=== PATIENT | female | born 1970 | race Caucasian/White ===

== ENCOUNTER 2017-07-29 22:48 | Emergency (ER) | payer SELFPAY ==
[~2017-07-29] VITALS: Ht 157.5 cm; Wt 90.7 kg
[~2017-07-29 22:48] MED LIST: HYDROCHLOROTHIA25 MG GT; HYDROCODON-ACE1 EAC6 PO; LISINOPRIL10 MG GT
[2017-07-29 23:12] VITALS: Ht 157.5 cm; Wt 90.7 kg
[2017-07-29] MEDS ORDERED: HORMONE REPLACEMENT (23:14)
[2017-07-29 23:50] LABS: ALBUMIN 3.8 g/dL (3.4-5.0); ALKALINE PHOSPHATASE 90 U/L (46-116); ALT (SGPT) 22 U/L (10-68); CALC OSMOLALITY 287 mosm/kg (275-300); CALCIUM 8.9 mg/dL (8.5-10.1); CHLORIDE - SERUM 108 mmol/L (98-107); CREATININE - SERUM 0.8 mg/dL (0.6-1.3); GLUCOSE 90 mg/dL (74-106); POTASSIUM - SERUM 3.4 mmol/L (3.5-5.1); PROTEIN - SERUM 7.1 g/dL (6.4-8.2); SODIUM 144 mmol/L (136-145); UREA NITROGEN 16 mg/dL (7-18); eGFR NON AFRICAN AMERICAN 81 mL/min (90-120)
[2017-07-30 00:15] LABS: BASOPHILS 0.2 % (0-2); EOSINOPHILS 2.1 % (0-7); HEMATOCRIT 38.1 % (36.0-48.0); HEMOGLOBIN 12.7 g/dL (12-16); IMMATURE GRANULOCYTES 0.2 % (0-5); LYMPHOCYTES 27.1 % (15-50); MCH 28.4 pg (26.0-34.0); MCHC 33.3 g/dL (31.0-37.0); MCV 85.2 fL (80.0-100.0); MEAN PLATELET VOLUME 10.8 fL (7.4-10.4); MONOCYTES 7.5 % (2-11); NEUTROPHILS 62.9 % (40-80); PLATELET COUNT 297 10x3/uL (130-400); RBC 4.47 10x6/uL (4.00-5.40); RDW 13.1 % (11.5-14.5); WBC 8.4 10x3/uL (4.8-10.8)
[2017-07-30 02:19] VITALS: BP 123/74
== END 2017-07-30 02:20 | disposition home or self-care (01) ==
LOC: D.ER 22:48
PROVIDERS: Emergency Medicine
DX: M71.21 Synovial cyst of popliteal space [Baker], right knee (principal); M79.604 Pain in right leg; I10 Essential (primary) hypertension

== ENCOUNTER 2018-05-19 09:36 | Emergency (ER) | payer SELFPAY ==
[~2018-05-19] VITALS: Ht 157.5 cm; Wt 90.9 kg
[~2018-05-19 09:36] MED LIST changes: +HORMONE REPLACEMENT
[2018-05-19 09:38] VITALS: Ht 157.5 cm; Wt 90.9 kg
[2018-05-19] MEDS ORDERED: LISINOPRIL-HCT1 EAC8 PO (10:44)
[2018-05-19 11:21] VITALS: BP 184/77
== END 2018-05-19 11:20 | disposition home or self-care (01) ==
LOC: D.ER 09:36
DX: S93.601A Unspecified sprain of right foot, initial encounter (principal); X50.1XXA Overexertion from prolonged static or awkward postures, initial encounter; Y93.89 Activity, other specified; Y92.019 Unspecified place in single-family (private) house as the place of occurrence of the external cause; I10 Essential (primary) hypertension

== ENCOUNTER 2019-10-29 10:07 | Emergency (ER) | payer SELFPAY ==
[~2019-10-29] VITALS: Ht 157.5 cm; Wt 90.9 kg
[~2019-10-29 10:07] MED LIST changes: +LISINOPRIL-HCT1 EAC8 PO
[2019-10-29 10:24] VITALS: Ht 157.5 cm; Wt 90.9 kg
[2019-10-29 11:36] LABS: BASOPHILS 0.3 % (0-2); HEMATOCRIT 39.1 % (36.0-48.0); IMMATURE GRANULOCYTES 0.2 % (0-5); LYMPHOCYTES 41.9 % (15-50); MCH 29.5 pg (26.0-34.0); MCHC 33.2 g/dL (31.0-37.0); MCV 88.7 fL (80.0-100.0); MEAN PLATELET VOLUME 10.4 fL (7.4-10.4); MONOCYTES 6.8 % (2-11); NEUTROPHILS 48.8 % (40-80); PLATELET COUNT 274 10x3/uL (130-400); RBC 4.41 10x6/uL (4.00-5.40); RDW 12.7 % (11.5-14.5); WBC 6.4 10x3/uL (4.8-10.8)
[2019-10-29 11:41] LABS: ANION GAP 9.2 mmol/L (8-16); CALCIUM 8.9 mg/dL (8.5-10.1); CARBON DIOXIDE 30.6 mmol/L (21.0-32.0); CREATININE - SERUM 0.9 mg/dL (0.6-1.3); POTASSIUM - SERUM 3.8 mmol/L (3.5-5.1)
[2019-10-29 11:48] LABS: ALBUMIN 3.6 g/dL (3.4-5.0); BILIRUBIN - TOTAL 0.69 mg/dL (0.2-1.3); PROTEIN - SERUM 7.1 g/dL (6.4-8.2)
[2019-10-29] MEDS ORDERED: VOLTAREN75 MG PO (11:57)
[2019-10-29 12:59] VITALS: BP 130/65
== END 2019-10-29 13:01 | disposition home or self-care (01) ==
LOC: D.ER 10:07
PROVIDERS: Family Medicine
DX: M25.561 Pain in right knee (principal); M17.11 Unilateral primary osteoarthritis, right knee; I10 Essential (primary) hypertension

== ENCOUNTER 2020-08-12 19:52 | Emergency (ER) | payer SELFPAY ==
[~2020-08-12] VITALS: Ht 157.5 cm; Wt 90.9 kg
[~2020-08-12 19:52] MED LIST changes: +VOLTAREN75 MG PO
[2020-08-12 19:56] VITALS: Ht 157.5 cm; Wt 90.9 kg
[2020-08-12 22:05] LABS: CARBON DIOXIDE 31.4 mmol/L (21.0-32.0); CREATININE - SERUM 0.9 mg/dL (0.6-1.3); POTASSIUM - SERUM 3.4 mmol/L (3.5-5.1)
[2020-08-12 22:16] LABS: BASOPHILS 0.2 % (0-2); EOSINOPHILS 1.7 % (0-7); HEMATOCRIT 39.7 % (36.0-48.0); HEMOGLOBIN 13.4 g/dL (12-16); LYMPHOCYTES 28.8 % (15-50); MCH 29.2 pg (26.0-34.0); MCHC 33.9 g/dL (31.0-37.0); MCV 86.2 fL (80.0-100.0); MEAN PLATELET VOLUME 9.4 fL (7.4-10.4); MONOCYTES 6.2 % (2-11); NEUTROPHILS 63.1 % (40-80); PLATELET COUNT 245 10x3/uL (130-400); RDW 13.5 % (11.5-14.5); WBC 8.3 10x3/uL (4.8-10.8)
[2020-08-12 22:18] LABS: ALBUMIN 3.7 g/dL (3.4-5.0); BILIRUBIN - TOTAL 0.47 mg/dL (0.2-1.3); PROTEIN - SERUM 7.3 g/dL (6.4-8.2)
[2020-08-12 22:27] LABS: APTT 28.9 SECONDS (22.8-39.4); INR 1.03 (0.85-1.17); PROTIME 12.5 SECONDS (11.6-15.0)
[2020-08-12 22:28] LABS: D-DIMER-QUANTITATIVE 0.47 ug/mLFEU (0.20-0.54)
[2020-08-13 00:23] VITALS: BP 149/69
== END 2020-08-13 00:23 | disposition home or self-care (01) ==
LOC: D.ER 19:52
PROVIDERS: Emergency Medicine
DX: M71.22 Synovial cyst of popliteal space [Baker], left knee (principal); I10 Essential (primary) hypertension